=== PATIENT | female | born 2000 | race Two or more races ===

== ENCOUNTER 2023-09-12 19:23 | Emergency (ER) | payer OTHER ==
[~2023-09-12] VITALS: Ht 149.9 cm; Wt 76.0 kg
[2023-09-12] MEDS ORDERED: AUG875T PO (20:39)
[2023-09-12] MEDS ORDERED: ACET500T58 PO (20:39)
[2023-09-12 20:46] VITALS: BP 137/78; PULSE 70; RESP 18; TEMP 97.9
[2023-09-12 20:48] VITALS: O2SAT 100
[2023-09-12] MEDS: TETANUS-DIPTH-ACEL PERTUSSIS 0.5ML SYR Tdap IM ONE (21:06)
[2023-09-12] MEDS: AMOXICILLIN/CLAVUL 875 MG TAB PO ONE (21:07)
== END 2023-09-12 20:50 | disposition home or self-care (01) ==
LOC: ER 19:23
DX: S01.511A Laceration without foreign body of lip, initial encounter (principal); W54.0XXA Bitten by dog, initial encounter; Y93.89 Activity, other specified; Y92.89 Other specified places as the place of occurrence of the external cause; Y99.8 Other external cause status
CPT/HCPCS: 12011; 90471; 90715